=== PATIENT | male | born 1955 | race Caucasian/White ===

== ENCOUNTER 2017-08-29 18:55 | Emergency (ER) | payer OTHER ==
[2017-08-29] MEDS: morphine 4 MG/ML VIAL IV (21:13)
[2017-08-29] MEDS: ONDANSETRON 4 MG INJ IV (21:13)
[2017-08-29] MEDS: SOD CHLORIDE 0.9% 100 ML (21:34)
[2017-08-29] MEDS: IOHEXOL 300MG/ML 150 ML BTL (21:34)
[2017-08-29 21:38] LABS: ADD MAN DIFF? NO
[2017-08-29 21:40] LABS: ABNORMAL IP MESSAGE 1; BASOPHIL # 0.1 10^3/ul (0.0-0.1); BASOPHILS % 0.6 % (0.0-2.0); EOSINOPHILS # 0.4 10^3/ul (0.0-0.5); HEMATOCRIT 42.8 % (42.0-52.0); HEMOGLOBIN 14.5 g/dl (14.0-18.0); LYMPHOCYTES # 3.5 10^3/ul (0.8-2.9); MEAN CORPUSCULAR HEMOGLOBIN 30.9 pg (29.0-33.0); MEAN CORPUSCULAR HGB CONC 33.9 g/dl (32.0-37.0); MEAN CORPUSCULAR VOLUME 91.1 fl (82.0-101.0); MEAN PLATELET VOLUME 12.8 fl (7.4-10.4); MONOCYTE # 0.9 10^3/ul (0.3-0.9); MONOCYTES % 9.5 % (0.0-11.0); NEUTROPHIL # 4.8 10^3/ul (1.6-7.5); NEUTROPHILS % 49.7 % (39.0-77.0); PLATELET COUNT 84 10^3/UL (140-415); POSITIVE DIFF @See below; RED CELL DISTRIBUTION WIDTH 14.3 % (11.5-14.5)
[2017-08-29 21:40] LABS: WHITE BLOOD COUNT 9.7 10^3/ul (4.8-10.8)
[2017-08-29 21:58] LABS: ALANINE AMINOTRANSFERASE 48 IU/L (13-69); ALBUMIN 4.1 g/dl (3.3-4.9); ALBUMIN/GLOBULIN RATIO 1.13; ALKALINE PHOSPHATASE 135 IU/L (42-121); ANION GAP 16 (8-16); ASPARTATE AMINO TRANSFERASE 47 IU/L (15-46); BILIRUBIN,INDIRECT 0.1 mg/dl (0-1.1); BILIRUBIN,TOTAL 0.1 mg/dl (0.2-1.3); BLOOD UREA NITROGEN 16 mg/dl (7-20); CALCIUM 8.9 mg/dl (8.4-10.2); CARBON DIOXIDE 22 mmol/L (21-31); CHLORIDE 109 mmol/L (97-110); CREATININE 0.73 mg/dl (0.61-1.24); GLUCOSE 84 mg/dl (70-220); POTASSIUM 4.2 mmol/L (3.5-5.1); SODIUM 143 mmol/L (135-144); TOTAL PROTEIN 7.7 g/dl (6.1-8.1)
[2017-08-29 22:12] LABS: INR 0.97
[2017-08-29 22:13] LABS: PARTIAL THROMBOPLASTIN TIME 28.8 Sec (25.0-35.0)
[2017-08-30] MEDS: SOD CHLORIDE 0.9% 500 ML IV (01:57)
[2017-08-30] MEDS: PIPER-TAZO 3.375 GM IV (PMX) 100 ML IVPB (02:04)
== END 2017-08-30 02:53 | disposition home or self-care (01) ==
LOC: FTE 08-30 02:53
DX: K04.7 Periapical abscess without sinus (principal); R59.1 Generalized enlarged lymph nodes; Z87.891 Personal history of nicotine dependence
CPT/HCPCS: 36415; 70486; 80053; 85025; 85610; 85730; 96374; 96375; 99285-25

== ENCOUNTER 2017-10-23 06:37 | Emergency (ER) | payer OTHER ==
[2017-10-23] MEDS: LORAZEPAM 1 MG TAB PO (07:01)
[2017-10-23] MEDS: CHLORDIAZEPOXIDE 25 MG CAP PO (07:01)
[2017-10-23] MEDS: FOLIC ACID 1 MG TAB PO (07:12)
[2017-10-23] MEDS: THIAMINE 100 MG TAB PO (07:12)
[2017-10-23] MEDS: ALBUTEROL 0.083% (NEB) 2.5 MG/3 ML AMP NEB (07:24)
[2017-10-23] MEDS: IPRATROPIUM (NEB) 0.5 MG/2.5 ML AMP NEB (07:24)
== END 2017-10-23 07:53 | disposition home or self-care (01) ==
LOC: E/R 06:37
DX: J22 Unspecified acute lower respiratory infection (principal); F10.230 Alcohol dependence with withdrawal, uncomplicated; F17.210 Nicotine dependence, cigarettes, uncomplicated
CPT/HCPCS: 94664; 99284-25

== ENCOUNTER 2017-12-31 21:12 | Emergency (ER) | payer OTHER ==
[2017-12-31] MEDS: HYDROCODONE/APAP (5/325) TAB PO (22:41)
== END 2018-01-01 00:45 | disposition home or self-care (01) ==
LOC: FTE 01-01 00:45
DX: M79.604 Pain in right leg (principal); F17.210 Nicotine dependence, cigarettes, uncomplicated
CPT/HCPCS: 93971; 99284-25

== ENCOUNTER 2018-02-05 18:19 | Emergency (ER) | payer OTHER ==
[2018-02-05] MEDS: NAPROXEN 500 MG TAB PO (21:27)
== END 2018-02-05 21:43 | disposition home or self-care (01) ==
LOC: FTE 18:19
DX: M79.604 Pain in right leg (principal); F17.210 Nicotine dependence, cigarettes, uncomplicated
CPT/HCPCS: 99283; Z7502

== ENCOUNTER 2018-05-23 13:25 | Emergency (ER) | payer OTHER ==
[2018-05-23 16:49] LABS: ADD MAN DIFF? NO
[2018-05-23 16:51] LABS: ABNORMAL IP MESSAGE 1; BASOPHILS % 0.5 % (0.0-2.0); EOSINOPHILS # 0.1 10^3/ul (0.0-0.5); EOSINOPHILS % 0.8 % (0.0-7.0); HEMOGLOBIN 14.2 g/dl (14.0-18.0); LYMPHOCYTES # 1.5 10^3/ul (0.8-2.9); LYMPHOCYTES % 22.9 % (15.0-51.0); MEAN CORPUSCULAR HEMOGLOBIN 29.4 pg (29.0-33.0); MEAN CORPUSCULAR HGB CONC 34.6 g/dl (32.0-37.0); MEAN CORPUSCULAR VOLUME 84.9 fl (82.0-101.0); MEAN PLATELET VOLUME 13.7 fl (7.4-10.4); MONOCYTE # 0.6 10^3/ul (0.3-0.9); MONOCYTES % 9.3 % (0.0-11.0); NEUTROPHIL # 4.3 10^3/ul (1.6-7.5); NEUTROPHILS % 66.2 % (39.0-77.0); PLATELET COUNT 60 10^3/UL (140-415); POSITIVE DIFF @See below; RED BLOOD COUNT 4.83 10^6/ul (4.70-6.10); RED CELL DISTRIBUTION WIDTH 14.4 % (11.5-14.5)
[2018-05-23 16:51] LABS: WHITE BLOOD COUNT 6.5 10^3/ul (4.8-10.8)
[2018-05-23] MEDS: LIDOCAINE/MYLANTA 40 ML BTL PO (16:53)
[2018-05-23] MEDS: LORAZEPAM 2 MG INJ IV (16:53)
[2018-05-23] MEDS: FAMOTIDINE 20 MG TAB PO (16:53)
[2018-05-23] MEDS: BELLADONNA/PHENOBARBITAL TAB PO (16:53)
[2018-05-23] MEDS: ONDANSETRON 4 MG INJ IV (16:53)
[2018-05-23 17:17] LABS: ALANINE AMINOTRANSFERASE 302 IU/L (13-69); ALBUMIN/GLOBULIN RATIO 1.21; ALKALINE PHOSPHATASE 164 IU/L (42-121); ANION GAP 12 (5-13); ASPARTATE AMINO TRANSFERASE 485 IU/L (15-46); BILIRUBIN,INDIRECT 0.9 mg/dl (0-1.1); BILIRUBIN,TOTAL 1.2 mg/dl (0.2-1.3); BLOOD UREA NITROGEN 20 mg/dl (7-20); CALCIUM 9.2 mg/dl (8.4-10.2); CARBON DIOXIDE 26 mmol/L (21-31); CHLORIDE 101 mmol/L (97-110); CREATININE 0.67 mg/dl (0.61-1.24); Estimated GFR > 60 mL/min (>60); GLUCOSE 92 mg/dl (70-220); LIPASE 56 U/L (23-300); POTASSIUM 3.9 mmol/L (3.5-5.1); SODIUM 139 mmol/L (135-144); TOTAL PROTEIN 7.3 g/dl (6.1-8.1)
[2018-05-23 17:26] LABS: TROPONIN-I < 0.012 ng/ml (0.000-0.120)
[2018-05-23 18:59] LABS: BAND NEUTROPHILS % (M) 1 % (0-4); EOSINOPHILS % (M) 1 % (0-7); GIANT THROMBO% (M) 2 % (0-0); LYMPHOCYTES #M 1.6 10^3/ul (0.8-2.9); LYMPHOCYTES % (M) 25 % (15-51); MONOCYTE #M 0.3 10^3/ul (0.3-0.9); MONOCYTES % (M) 6 % (0-11); PLATELET ESTIMATE DECREASED; SEG NEUT #M 4.4 10^3/ul (1.6-7.5); SEGMENTED NEUTROPHILS (M) % 67 % (39-77); SMUDGE%M 21 % (0-0)
[2018-05-24] MEDS ORDERED: MULTIVITAMINS 10 ML, THIAMINE 100 MG, FOLIC ACID 1 MG in SOD CHLORIDE 0.9% 1,000 ML IVPB (09:00)
== END 2018-05-23 20:30 | disposition left against medical advice (07) ==
LOC: E/R 13:25
DX: F10.920 Alcohol use, unspecified with intoxication, uncomplicated (principal); F10.230 Alcohol dependence with withdrawal, uncomplicated; R74.0 Nonspecific elevation of levels of transaminase and lactic acid dehydrogenase [LDH]; I10 Essential (primary) hypertension; F17.210 Nicotine dependence, cigarettes, uncomplicated
CPT/HCPCS: 36415; 80053; 83690; 84484; 85025; 93005; 96374; 96375; 99284-25

== ENCOUNTER 2018-07-31 03:52 | Emergency (ER) | payer OTHER ==
[2018-07-31] MEDS: IBUPROFEN 600 MG TAB PO (05:52)
== END 2018-07-31 06:14 | disposition home or self-care (01) ==
LOC: E/R 03:52
DX: M79.10 Myalgia, unspecified site (principal); F17.210 Nicotine dependence, cigarettes, uncomplicated
CPT/HCPCS: 99282; Z7502